=== PATIENT | female | born 1965 | race Two or more races ===

== ENCOUNTER 2024-09-19 11:10 | Outpatient (CLI) | payer OTHER | END 2024-09-19 11:11 | disposition home or self-care (01) | LOC: NUCLEAR 11:10 | PROVIDERS: ATTEND Internal Medicine Sports Medicine | DX: C73 Malignant neoplasm of thyroid gland (principal); E89.0 Postprocedural hypothyroidism | CPT/HCPCS: 79005; A9517 ==

== ENCOUNTER 2024-09-23 09:50 | Outpatient (CLI) | payer OTHER | END 2024-09-23 09:51 | disposition home or self-care (01) | LOC: NUCLEAR 09:50 | PROVIDERS: ATTEND Internal Medicine Sports Medicine | DX: C73 Malignant neoplasm of thyroid gland (principal); E89.0 Postprocedural hypothyroidism | CPT/HCPCS: 78018; A9528 ==